=== PATIENT | male | born 1995 ===

== ENCOUNTER 2022-12-07 05:38 | Day surgery (SDC) | payer OTHER ==
[~2022-12-07] VITALS: Ht 167.6 cm; Wt 90.7 kg
[~2022-12-07 05:38] MED LIST: CANABIS PO
[2022-12-07] MEDS ORDERED: KETO10TA2 PO (07:44)
[2022-12-07] MEDS ORDERED: TRAMADOL HCL50 MG PO (07:44)
[2022-12-07] MEDS ORDERED: TYLENOL ARTHRI650 MG PO (07:44)
[2022-12-07] MEDS ORDERED: MIRALAX17 GM PO (07:44)
== END 2022-12-07 13:05 | disposition home or self-care (01) ==
LOC: CIR.AMB 05:38
PROVIDERS: ATTEND Surgery
DX: K40.90 Unilateral inguinal hernia, without obstruction or gangrene, not specified as recurrent (principal); I10 Essential (primary) hypertension; Z20.822 Contact with and (suspected) exposure to COVID-19; Z03.818 Encounter for observation for suspected exposure to other biological agents ruled out; Z88.0 Allergy status to penicillin
CPT/HCPCS: 49650; C1781